=== PATIENT | male | born 1975 | race Caucasian/White ===

== ENCOUNTER 2020-11-21 23:36 | Emergency (ER) | payer OTHER ==
[~2020-11-21] VITALS: Ht 188 cm; Wt 93.2 kg
[2020-11-21 23:49] VITALS: Ht 188 cm; Wt 93.2 kg
[2020-11-22] MEDS ORDERED: HYDROCODONE-AC1 EAC2 PO (01:15)
[2020-11-22 01:47] VITALS: BP 127/81
== END 2020-11-22 01:47 | disposition home or self-care (01) ==
LOC: D.ER 23:36
DX: S66.126A Laceration of flexor muscle, fascia and tendon of right little finger at wrist and hand level, initial encounter (principal); W25.XXXA Contact with sharp glass, initial encounter; Y93.9 Activity, unspecified; Y92.9 Unspecified place or not applicable